=== PATIENT | male | born 1960 | race American Indian/Alaskan Native ===

== ENCOUNTER 2018-04-01 08:58 | Day surgery (SDC) | payer OTHER ==
[2018-04-01] MEDS ORDERED: NACL 0.9% 500 ML 500 ML IV SCH (10:00)
[2018-04-01] MEDS ORDERED: ATROPINE 0.1% (CARDIAC) ONE (11:17)
[2018-04-01] MEDS ORDERED: NITROSTAT SL ONE (11:17)
[2018-04-01] MEDS ORDERED: ADRENALIN ONE (11:17)
--- NOTE | 2018-04-01 12:03 | Short Stay Summary ---
Short Stay Documentation Date of service: 04/01/18 - History H&P: obtained from office - Allergies and Medications Current Medications: Allergies egg Allergy (Verified 04/01/18 09:21) Swelling throat swelling shellfish derived Allergy (Verified 04/01/18 09:22) Swelling throat swelling codeine Adverse Reaction (Verified 04/01/18 09:22) Unknown pt "pass out" metformin Adverse Reaction (Verified 04/01/18 09:21) Nausea vomiting Home Medications Medication Instructions Recorded Confirmed Last Taken Type Aspirin [Adult Low Dose Aspirin EC] 81 mg PO QDAY 04/01/18 04/01/18 03/31/18 History AtorvaSTATin [Lipitor] 40 mg PO QHS 04/01/18 04/01/18 03/31/18 History Lisinopril [Zestril] 20 mg PO QDAY 04/01/18 04/01/18 03/31/18 History Multivitamin 1 tab PO QDAY 04/01/18 04/01/18 03/31/18 History Sitagliptin Phosphate [Januvia] 100 mg PO QDAY 04/01/18 04/01/18 03/31/18 History Zinc Gluconate [Elemental Zinc] 30 mg PO QDAY 04/01/18 04/01/18 03/31/18 History glipiZIDE [Glipizide] 5 mg PO QDAY 04/01/18 04/01/18 03/31/18 History Active Medications Sodium Chloride (Nacl 0.9% 500 Ml) 500 mls @ 50 mls/hr IV DIRECT KRISTEN Last Admin: 04/01/18 09:49 Dose: 50 mls/hr - Physical exam General appearance: no acute distress Integumentary: no rash HEENT: Atraumatic Lungs: Clear to auscultation Breasts: deferred Heart: Regular rate Gastrointestinal: normal Male Genitourinary: deferred Female Genitourinary: deferred Rectal Exam: deferred Extremities: no ischemia Neurological: Normal gait - Brief post op/procedure progress note Date of procedure: 04/01/18 Pre-op diagnosis: Syncope Post-op diagnosis: same Procedure: TTT Anesthesia: none Findings: See report Surgeon: PRADEEP MAOY Estimated blood loss: none Pathology: none Condition: stable - Hospital course Hospital course: Uneventful - Disposition Condition at discharge: Good Disposition: DC-01 TO HOME OR SELFCARE Short Stay Discharge Plan Activity: advance as tolerated Weight Bearing Status: Weight Bear as Tolerated Diet: regular Follow up with: MC URENA MD [Primary Care Provider] - 7 Days
[2018-04-01 12:42] VITALS: BP 113/67
--- NOTE | 2018-04-02 02:09 | Procedure Note ---
TILT TABLE TEST ORDERING PHYSICIAN: Martha Sebastian MD INDICATION FOR THE PROCEDURE: Syncope. DESCRIPTION OF PROCEDURE: After obtaining written consent, the patient was brought to the mine laborer area. The patient was placed securely on the tilt table test. Baseline blood pressure prior to tilting was 123/91 with the heart rate of 86 beats per minute. The patient was then tilted to upright from 85 degrees from horizontal. His blood pressure after tilting was 127/90 with the heart rate of 118 beats per minute. The patient was kept in this upright position for 10 minutes during which no hemodynamic instability was recorded. The patient did not lose consciousness. The patient was then given 0.4 mg of sublingual nitroglycerin. After the nitroglycerin, the patient maintained a normal blood pressure until roughly 4 minutes into the nitroglycerin dose then the patient did experience loss of consciousness. His blood pressure was recorded at that time was 91/60 and his heart rate has dropped from 117 sinus tachycardia to 75 sinus rhythm. The patient was tilted back to horizontal with spontaneous return of consciousness. His blood pressure spontaneously returned back to 119/78 and his heart rate to 90 beats per minute sinus rhythm. IMPRESSION: This is a positive tilt table test with evidence of mild cardioinhibitory and mild vasodepressor response. There was no evidence of significant pauses or bradyarrhythmias. Lowest recorded blood pressure was 91/69. RECOMMENDATIONS: 1. Follow up with referring summons server. 2. Behavioral changes. JOB# [id number] SHANDA/JUAN DAVID
== END 2018-04-01 12:55 | disposition home or self-care (01) ==
LOC: CATHLABREC 08:58 → CATH 08:58 → CATHLABREC 12:55
PROVIDERS: ATTEND Internal Medicine
DX: R55 Syncope and collapse (principal); E11.36 Type 2 diabetes mellitus with diabetic cataract; E78.5 Hyperlipidemia, unspecified; I10 Essential (primary) hypertension; Z88.8 Allergy status to other drugs, medicaments and biological substances; Z91.012 Allergy to eggs; Z88.5 Allergy status to narcotic agent; Z91.013 Allergy to seafood; Z79.82 Long term (current) use of aspirin; Z79.84 Long term (current) use of oral hypoglycemic drugs; Z82.49 Family history of ischemic heart disease and other diseases of the circulatory system
CPT/HCPCS: 93660; J7040; J0171; J0461